=== PATIENT | female | born 1995 | race American Indian/Alaskan Native ===

== ENCOUNTER 2019-04-23 23:32 | Emergency (ER) | payer SELFPAY ==
[2019-04-24 01:55] VITALS: BP 119/67
[2019-04-24] MEDS ORDERED: BUTALB/ACETAMINOPHEN/CAFFEINE TAB PO ONE (02:37)
[2019-04-24] MEDS ORDERED: ONDANSETRON 4 MG ODT TAB PO ONE (02:37)
[2019-04-24] MEDS ORDERED: KETOROLAC 30 MG/1 ML INJ IM ONE (02:37)
--- NOTE | 2019-04-24 03:46 | Emergency Department Report ---
ED Headache HPI - General Chief Complaint: Headache Stated Complaint: HEADACHE NECK PAIN VOMITING Source: patient Exam Limitations: no limitations - History of Present Illness Initial Comments: Patient is a 23-year-old -[place] female with history of chronic migraine headaches and who takes Imitrex for her migraine headaches presents to the ED with acute exacerbation of her chronic migraine headaches characterized by frontal sinus pressure and headache with nausea and vomiting for the last 1 week intermittently, worse in the last 2 days. Patient states that in the last 2 days, the migraine headache has worsened and is now characterized by pressure and photophobia. Patient states that this is typical of her chronic migraine headaches. Patient states that she ran out of her Imitrex about 2 weeks ago and has not had it refilled since it was done out of state in [place]. Patient denies dizziness, change in vision, neck pain, chest pain, shortness of breath, fever, chills, cough, sore throat, abdominal pain, diarrhea, syncope or palpitations, nasal and sinus congestion. Timing/Duration: 1 week, constant, waxing and waning Quality: severe, pressure, sharp, other (frontal and retro-orbital) Head Injury Location: frontal, other (retro-orbital) Recent Head Trauma: chronic headaches, head trauma > 24 hrs ago Modifying Factors: improves with: medication Associated Symptoms: denies symptoms, nausea/vomiting. denies: confusion, fatig ue, facial pain, fever/chills, flushing, loss of consciousness, nasal congestion, nasal drainage, numbness in legs/feet, rash, seizures, sinus infection, stiff neck, vision changes, other Allergies/Adverse Reactions: Allergies No Known Allergies Allergy (Unverified 04/24/19 00:30) Home Medications: Ambulatory Orders Amoxicillin [Trimox CAP] 500 mg PO Q8H #30 capsule 04/24/19 Butalb/Acetamin/Caff 50-325-40 [Fioricet 50-325-40] 1 - 2 tab PO Q6HR PRN #15 tab 04/24/19 Ketorolac [Toradol] 10 mg PO Q8H PRN #20 tablet 04/24/19 Ondansetron [Zofran Odt] 4 mg PO Q6HR PRN #20 tab.rapdis 04/24/19 SUMAtriptan SUCCINATE [Imitrex] 50 mg PO BID PRN 3 Days #30 tab 04/24/19 ED Review of Systems ROS: Stated complaint: HEADACHE NECK PAIN VOMITING Other details as noted in HPI Constitutional: denies: chills, fever Eyes: other (Photophobia and bilateral retro-orbital pain). denies: eye pain, eye discharge, vision change ENT: denies: ear pain, throat pain Respiratory: denies: cough, shortness of breath, SOB with exertion, wheezing Cardiovascular: denies: chest pain, palpitations, edema, syncope, paroxysmal nocturnal dyspnea Endocrine: no symptoms reported. denies: see HPI, excessive sweating, flushing Gastrointestinal: nausea, vomiting. denies: abdominal pain, diarrhea Genitourinary: denies: urgency, dysuria, discharge Musculoskeletal: denies: back pain, joint swelling, arthralgia Skin: denies: rash, lesions Neurological: headache. denies: weakness, paresthesias, abnormal gait, vertigo Psychiatric: denies: anxiety, depression Hematological/Lymphatic: denies: easy bleeding, easy bruising ED Past Medical Hx - Past Medical History Previous Medical History?: Yes Hx Headaches / Migraines: Yes - Surgical History Past Surgical History?: No - Social History Smoking Status: Never Smoker Substance Use Type: None - Medications Home Medications: Home Medications Medication Instructions Recorded Confirmed Last Taken Type Amoxicillin [Trimox CAP] 500 mg PO Q8H #30 capsule 04/24/19 Unknown Rx Butalb/Acetamin/Caff 50-325-40 1 - 2 tab PO Q6HR PRN #15 tab 04/24/19 Unknown Rx [Fioricet 50-325-40] Ketorolac [Toradol] 10 mg PO Q8H PRN #20 tablet 04/24/19 Unknown Rx Ondansetron [Zofran Odt] 4 mg PO Q6HR PRN #20 tab.rapdis 04/24/19 Unknown Rx SUMAtriptan SUCCINATE [Imitrex] 50 mg PO BID PRN 3 Days #30 tab 04/24/19 Unknown Rx ED Physical Exam - General Limitations: No Limitations General appearance: alert, in no apparent distress - Head Head exam: Present: atraumatic, normocephalic, normal inspection - Eye Eye exam: Present: normal appearance, PERRL, EOMI Pupils: Present: normal accommodation - ENT ENT exam: Present: normal exam, normal orophraynx, mucous membranes moist, TM's normal bilaterally, normal external ear exam - Neck Neck exam: Present: normal inspection, full ROM. Absent: tenderness, lymphadenopathy - Respiratory Respiratory exam: Present: normal lung sounds bilaterally. Absent: respiratory distress, wheezes, rales, rhonchi, chest wall tenderness, accessory muscle use, decreased breath sounds - Cardiovascular Cardiovascular Exam: Present: regular rate, normal rhythm, normal heart sounds. Absent: systolic murmur, diastolic murmur, rubs, gallop - GI/Abdominal GI/Abdominal exam: Present: soft, normal bowel sounds. Absent: tenderness, guarding, hyperactive bowel sounds, hypoactive bowel sounds - Extremities Exam Extremities exam: Present: normal inspection, full ROM, normal capillary refill - Back Exam Back exam: Present: normal inspection, full ROM. Absent: tenderness, muscle spasm, paraspinal tenderness - Neurological Exam Neurological exam: Present: alert, oriented X3, CN II-XII intact, normal gait, reflexes normal - Psychiatric Psychiatric exam: Present: normal affect, normal mood - Skin Skin exam: Present: warm, dry, intact, normal color. Absent: rash ED Course Vital Signs 04/23/19 23:40 Temperature 98.1 F Pulse Rate 69 Respiratory 18 Rate Blood Pressure 119/67 O2 Sat by Pulse 99 Oximetry ED Medical Decision Making - Medical Decision Making This is a 23-year-old female with a history of chronic migraine headaches who presented to the ED with acute exacerbation of her chronic migraine headaches for 1 week, worse in the last 2 days. In the ED, patient is alert and oriented x3 and is not in any distress. Patient was treated for pain in the ED and on reevaluation, patient's pain is well controlled with medications. Patient was discharged home on refill of her medications for headache. Patient was advised to follow-up with her primary care physician in 7 to 10 days for reevaluation. Patient was advised to return to the ED immediately if symptoms get worse. - Differential Diagnosis migraine headache; sinusitis; dehydration; URI Critical care attestation.: If time is entered above; I have spent that time in minutes in the direct care of this critically ill patient, excluding procedure time. ED Disposition Clinical Impression: Nausea and vomiting in adult Migraine headache without aura Qualifiers: Status migrainosus presence: without status migrainosus Intractability: not intractable Qualified Code(s): G43.009 - Migraine without aura, not intractable, without status migrainosus Acute frontal sinusitis Qualifiers: Recurrence: recurrent Qualified Code(s): J01.11 - Acute recurrent frontal sinusitis Disposition: TO HOME OR SELFCARE Is pt being admited?: No Does the pt Need Aspirin: No Condition: Stable Instructions: Migraine Headache (ED), Acute Nausea and Vomiting (ED), Acute Bacterial Rhinosinusitis (ED) Additional Instructions: Take medication with food, drink plenty of fluids and follow-up with your primary care physician in 7 to 10 days for reevaluation. Return to the ED immediately if symptoms get worse. Prescriptions: Butalb/Acetamin/Caff 50-325-40 [Fioricet 50-325-40] 1 - 2 tab PO Q6HR PRN #15 tab PRN Reason: Headache SUMAtriptan SUCCINATE [Imitrex] 50 mg PO BID PRN 3 Days #30 tab PRN Reason: Headache Ketorolac [Toradol] 10 mg PO Q8H PRN #20 tablet PRN Reason: Pain Amoxicillin [Trimox CAP] 500 mg PO Q8H #30 capsule Ondansetron [Zofran Odt] 4 mg PO Q6HR PRN #20 tab.rapdis PRN Reason: Nausea Referrals: PRIMARY CARE,MD [Primary Care Provider] - 7-10 days Time of Disposition: 04:03 Print Language: VIET[place]
== END 2019-04-24 04:18 | disposition home or self-care (01) ==
LOC: ED 23:32
DX: R11.2 Nausea with vomiting, unspecified (principal); G43.709 Chronic migraine without aura, not intractable, without status migrainosus; J01.10 Acute frontal sinusitis, unspecified; Z79.2 Long term (current) use of antibiotics; Z79.899 Other long term (current) drug therapy
CPT/HCPCS: 96372; 99282; J1885; Q0162